=== PATIENT | male | born 1980 | race Caucasian/White ===

== ENCOUNTER 2016-05-13 18:44 | Emergency (ER) | payer SELFPAY ==
[2016-05-13] MEDS ORDERED: NORMAL SALINE 1000 ML 1,000 ML IV ONE (19:45)
[2016-05-13 19:56] LABS: ALANINE AMINOTRANSFERASE 202 U/L (21-72); ALBUMIN 4.9 g/dL (3.5-5.0); ALKALINE PHOSPHATASE 114 U/L (38-126); ANION GAP 17 (5-19); ASPARTATE AMINO TRANSFERASE 96 U/L (17-59); BILIRUBIN,DIRECT 0.3 mg/dL (0.0-0.4); BILIRUBIN,TOTAL 0.9 mg/dL (0.2-1.3); BLOOD UREA NITROGEN 9 mg/dL (7-20); CALCIUM 10.3 mg/dL (8.4-10.2); CARBON DIOXIDE 22 mmol/L (22-30); CHLORIDE 102 mmol/L (98-107); CREATININE RESULT 1.06 mg/dL (0.52-1.25); GLUCOSE 109 mg/dL (75-110); LIPASE 220.3 U/L (23-300); POTASSIUM 3.1 mmol/L (3.6-5.0); SODIUM 141.4 mmol/L (137-145); TOTAL PROTEIN 8.1 g/dL (6.3-8.2)
[2016-05-13 20:02] LABS: ABSOLUTE LYMPHOCYTES (AUTO) 1.5 10^3/uL (0.5-4.7); ABSOLUTE MONOCYTES (AUTO) 1.7 10^3/uL (0.1-1.4); BASOPHILS % (AUTO) 0.2 % (0-2); EOSINOPHILS % (AUTO) 0.3 % (0-6); HEMATOCRIT 44.9 % (37.9-51.0); HGB HCT DIFFERENCE 0.1; LYMPHOCYTES % (AUTO) 12.2 % (13-45); MEAN CORPUSCULAR HEMOGLOBIN 29.5 pg (27.0-33.4); MEAN CORPUSCULAR HGB CONC 33.5 g/dL (32.0-36.0); MEAN CORPUSCULAR VOLUME 88 fl (80-97); MONOCYTES % (AUTO) 14.1 % (3-13); RED BLOOD COUNT 5.08 10^6/uL (4.35-5.55); SEGMENTED NEUTROPHILS % (AUTO) 73.2 % (42-78); WHITE BLOOD COUNT 12.3 10^3/uL (4.0-10.5)
[2016-05-13] MEDS ORDERED: ONDANSETRON HCL INJ/PF 4 MG/2 ML SDV IV ONE ×2 (20:28→22:36)
--- NOTE | 2016-05-13 20:40 | EKG REPORT ---
SEVERITY:- BORDERLINE ECG - SINUS RHYTHM BORDERLINE T ABNORMALITIES, INFERIOR LEADS : Confirmed by: Katherin Winslow 13-May-2016 20:39:15
[2016-05-13 20:50] LABS: APPEARANCE,URINE SLIGHTLY-CLOUDY; BILIRUBIN,URINE NEGATIVE (NEGATIVE); GLUCOSE, URINE NEGATIVE (NEGATIVE); KETONES,URINE NEGATIVE (NEGATIVE); LEUKOCYTE ESTERASE,URINE NEGATIVE (NEGATIVE); NITRITE,URINE NEGATIVE (NEGATIVE); PROTEIN,URINE NEGATIVE (NEGATIVE); URINE SPECIFIC GRAVITY 1.016; UROBILINOGEN,URINE NEGATIVE mg/dL (<2.0)
[2016-05-13 21:00] LABS: CREATINE KINASE MB < 0.22 ng/mL (<4.55); TROPONIN I < 0.012 ng/mL
[2016-05-13 21:11] LABS: URINE BARBITURATES SCREEN NEGATIVE; URINE METHADONE SCREEN NEGATIVE; URINE OPIATES LOW UNCONFIRMED POSITIVE; URINE PHENCYCLIDINE SCREEN NEGATIVE
[2016-05-13] MEDS ORDERED: POTASSIUM CHLORIDE 20 MEQ/15 ML UDCUP PO ONE (22:06)
[2016-05-13] MEDS ORDERED: RINGERS SOLUTION,LACTATED 1,000 ML IV ONE (22:26)
[2016-05-13] MEDS ORDERED: MORPHINE SULFATE 10 MG/ML INJ IV ONE (22:35)
--- NOTE | 2016-05-14 01:22 | ER Document Report ---
ED GI/ - General Chief Complaint: Flank Pain Stated Complaint: ALTERED, WEAK Mode of Arrival: Ambulatory Information source: Patient Notes: 36 y/o M presents to the Emergency Department c/o lower abd pain and n/v/d. Pt reports had similar symptoms last week and was evaluated by pcp and given IV fluids. States symptoms had resolved but yesterday evening began having lower abd pain and persistent watery diarrhea. Reports associated chills with unmeasured temperature at home and two episodes of vomiting. Reports was taking a shower this evening in an attempt to relieve the symptoms when he became dizzy and had brief syncopal episode. Denies striking head, neck pain, paresthesias, chest pain, sob, blood in stool or emesis. Denies recent travel or antibiotic use. TRAVEL OUTSIDE OF THE [place] IN LAST 30 DAYS: No - HPI Patient complains to provider of: Abdominal pain, Diarrhea, Vomiting Onset: Yesterday Timing/Duration: Persistent Quality of pain: Achy, Sharp Severity at maximum: Severe Severity in ED: Moderate Pain Level: 3 Similar symptoms previously: Yes Recently seen / treated by doctor: Yes - Related Data Allergies/Adverse Reactions: Iodinated Contrast Media - Oral and Allergy (Mild, Verified 05/13/16 20:42) Difficulty breathing Past Medical History - General Information source: Patient - Social History Smoking Status: Never Smoker Frequency of alcohol use: Rare Drug Abuse: None Lives with: Family Family History: Reviewed & Not Pertinent - Medical History Medical History: Negative Past Surgical History: Reports: Hx Orthopedic Surgery - left arm - Immunizations Hx Diphtheria, Pertussis, Tetanus Vaccination: Yes Review of Systems - Review of Systems Constitutional: No symptoms reported EENT: No symptoms reported Cardiovascular: See HPI Respiratory: No symptoms reported Gastrointestinal: See HPI Genitourinary: No symptoms reported Male Genitourinary: No symptoms reported Musculoskeletal: No symptoms reported Skin: No symptoms reported Hematologic/Lymphatic: No symptoms reported Neurological/Psychological: No symptoms reported -: Yes All other systems reviewed and negative Physical Exam - Vital signs Vitals: Resp Pulse Ox 14 100 05/13/16 19:06 05/13/16 19:06 Interpretation: Normal - General General appearance: Alert In distress: None - HEENT Head: Normocephalic, Atraumatic Eyes: Normal Eyelashes: Normal Pupils: PERRL Ears: Normal External canal: Normal Tympanic membrane: Normal Sinus: Normal Nasal: Normal Mouth/Lips: Normal Mucous membranes: Normal, Moist Pharynx: Normal. No: Blood in hypopharynx, Erythema, Exudate, Peritonsillar abscess, Post nasal drainage, Retropharyngeal abscess, Tonsillar hypertrophy, Uvular edema, Potential airway comprom., Other Neck: Normal. No: Anterior cervical chain, Posterior cervical chain, Lymphadenopathy, Meningismus, Subcutaneous emphysema - Respiratory Respiratory status: No respiratory distress Chest status: Nontender Breath sounds: Normal - CTAB Chest palpation: Normal - Cardiovascular Rhythm: Regular Heart sounds: Normal auscultation Murmur: No Pulses: Normal: Radial Normal capillary refill: Yes - Abdominal Inspection: Normal Distension: No distension Bowel sounds: Normal Tenderness: Tender - diffuse tenderness with palpation to lower abd L>R. No: Nontender, McBurney's point, Frederick's sign, Guarding, Rebound, Other Organomegaly: No organomegaly - Back Back: Normal, Nontender - Extremities General upper extremity: Normal inspection, Nontender, Normal color, Normal ROM , Normal strength, Normal temperature. No: Edema General lower extremity: Normal inspection, Nontender, Normal color, Normal ROM , Normal strength, Normal temperature, Normal weight bearing. No: Edema - Neurological Neuro grossly intact: Yes Cognition: Normal Orientation: AAOx4 Nathan Coma Scale Eye Opening: Spontaneous Nathan Coma Scale Verbal: Oriented [place] Coma Scale Motor: Obeys Commands [place] Coma Scale Total: 15 Speech: Normal Motor strength normal: LUE, RUE, LLE, RLE Sensory: Normal - Psychological Associated symptoms: Normal affect, Normal mood - Skin Skin Temperature: Warm Skin Moisture: Dry Skin Color: Normal Course - Re-evaluation Re-evalutation: 05/14/16 02:00 Pt hemodynamically stable, in no distress, afebrile. Slight leukocytosis, hypokalemia, and elevation of ast/alt on labs. CT scan with oral contrast unremarkable. Pt reports after IV fluids and pain medication feels much better and would like to go home. The patient presents with abdominal pain and n/v/d without signs of peritonitis or other life-threatening or serious etiology. The patient appears stable for discharge and has been instructed to return immediately if the symptoms persist or worsen in any way. Pt and significant other agree with home care, follow-up with pcp, and ED return precautions. Pt presentation, findings, ED care and plan discussed with ED physician Dr. Whitten who concurs with evaluation and treatment. - Vital Signs Vital signs: Temp Pulse Resp BP Pulse Ox 99.9 F 77 14 123/93 H 96 05/13/16 23:53 05/13/16 23:53 05/13/16 23:53 05/14/16 02:00 05/14/16 02:01 - Laboratory Result Diagrams: 05/13/16 18:53 05/13/16 18:53 Laboratory results interpreted by me: 05/13/16 05/13/16 05/13/16 18:53 18:53 20:26 WBC 12.3 H Lymphocytes % 12.2 L Monocytes % 14.1 H Absolute Neutrophils 9.0 H Absolute Monocytes 1.7 H Potassium 3.1 L POC Glucose 114 H Calcium 10.3 H AST 96 H ALT 202 H Urine Blood 05/13/16 20:27 WBC Lymphocytes % Monocytes % Absolute Neutrophils Absolute Monocytes Potassium POC Glucose Calcium AST ALT Urine Blood SMALL H - Diagnostic Test Radiology reviewed: Image reviewed, Reports reviewed - EKG Interpretation by Me EKG shows normal: Sinus rhythm, Intervals, QRS Complexes, ST-T Waves Rate: Normal When compared to previous EKG there are: Previous EKG unavailable Discharge - Discharge Clinical Impression: Abdominal pain Qualifiers: Abdominal location: lower abdomen, unspecified Qualified Code(s): R10.30 - Lower abdominal pain, unspecified Nausea & vomiting Qualifiers: Vomiting type: unspecified Vomiting Intractability: non-intractable Qualified Code(s): R11.2 - Nausea with vomiting, unspecified Condition: Stable Disposition: HOME, SELF-CARE Instructions: Abdominal Pain ([facility]), Observation for Appendicitis ([facility]), Intravenous (IV) Fluids ([facility]), Vomiting ([facility]), Diarrhea, Nonspecific ([facility]), Dehydration ([facility]), Pain Medication Injection ([facility]), Hypokalemia ([facility]), Liver Function Abnormality ([facility]), Ciprofloxacin ([facility]), Syncopal Episode ([facility]) Additional Instructions: Drink plenty of fluids. Follow-up with your primary care provider tomorrow. Return to the Emergency Department for any worsening symptoms or concerns. Prescriptions: Ciprofloxacin HCl [Cipro 500 mg Tablet] 500 mg PO BID #10 tablet Forms: Return to Work Referrals: MARISOL PHOENIX MD [ACTIVE STAFF] - Follow up tomorrow
[2016-05-14 02:50] VITALS: BP 127/89
== END 2016-05-14 02:35 | disposition home or self-care (01) ==
LOC: ER 18:44
DX: R10.30 Lower abdominal pain, unspecified (principal); R11.2 Nausea with vomiting, unspecified; R19.7 Diarrhea, unspecified; R68.83 Chills (without fever); R55 Syncope and collapse; R74.0 Nonspecific elevation of levels of transaminase and lactic acid dehydrogenase [LDH]; D72.829 Elevated white blood cell count, unspecified; E87.6 Hypokalemia; Z91.041 Radiographic dye allergy status
CPT/HCPCS: 93005; 96376; 99284; 96374; 96375; 36415; 87045; 89055; 87205; 82553; 82962; 82550; 83690; 85025; 82272; 80053; 81001; 84484; 80307; 74176; 93010; J2270; J2405; J7030; J7120

== ENCOUNTER 2019-04-24 18:12 | Emergency (ER) | payer SELFPAY ==
[2019-04-24] MEDS ORDERED: NORMAL SALINE 1000 ML 1,000 ML IV ONE (18:18)
[2019-04-24] MEDS ORDERED: METOCLOPRAMIDE HCL INJ/PF 10 MG/2 ML SDV IV ONE (18:18)
--- NOTE | 2019-04-24 18:20 | ER Document Report ---
ED Medical Screen (RME) - General Chief Complaint: Vomiting/Diarrhea Stated Complaint: VOMITING,ABDOMINAL PAIN,FEVER Time Seen by Provider: 04/24/19 18:18 Mode of Arrival: Ambulatory Information source: Patient Notes: 39-year-old male presents emergency department with complaints of 2 days of vomiting abdominal pain low-grade fever. Went to [place] urgent care where flu test and strep test were completed, both were negative. Patient reports he has been unable to hold any fluids down. Complains of right upper quadrant epigastric pain. Reports he has been here before for this but he forgets what he was diagnosed with. Patient also reports his children were sick with the same symptoms and they also tested negative for both strep and the flu. Denies recent trips overseas or contact with anyone from overseas. I have greeted and performed a rapid initial assessment of this patient. A comprehensive ED assessment and evaluation of the patient, analysis of test results and completion of the medical decision making process will be conducted by additional ED providers. TRAVEL OUTSIDE OF THE [place] IN LAST 30 DAYS: No - Related Data Allergies/Adverse Reactions: Iodinated Contrast Media [Iodinated Contrast Media - Oral and] Allergy (Mild, Verified 05/13/16 20:42) Difficulty breathing Past Medical History Past Surgical History: Reports: Hx Orthopedic Surgery - left arm - Immunizations Hx Diphtheria, Pertussis, Tetanus Vaccination: Yes Physical Exam - Vital signs Vitals: Temp Pulse Resp BP Pulse Ox 101.4 F H 93 18 129/89 H 99 04/24/19 18:21 04/24/19 18:21 04/24/19 18:21 04/24/19 18:21 04/24/19 18:21 Course - Vital Signs Vital signs: Temp Pulse Resp BP Pulse Ox 101.4 F H 93 18 129/89 H 99 04/24/19 18:21 04/24/19 18:21 04/24/19 18:21 04/24/19 18:21 04/24/19 18:21
[2019-04-24 19:34] LABS: ABSOLUTE MONOCYTES (AUTO) 1.2 10^3/uL (0.1-1.4); ABSOLUTE NEUT (AUTO) 6.6 10^3/uL (1.7-8.2); BASOPHILS % (AUTO) 0.2 % (0-2); HEMOGLOBIN 14.9 g/dL (13.5-17.0); LYMPHOCYTES % (AUTO) 11.1 % (13-45); MEAN CORPUSCULAR HEMOGLOBIN 30.5 pg (27.0-33.4); MEAN CORPUSCULAR HGB CONC 34.6 g/dL (32.0-36.0); MEAN CORPUSCULAR VOLUME 88 fl (80-97); MONOCYTES % (AUTO) 13.7 % (3-13); PLATELET COUNT 210 10^3/uL (150-450); RED BLOOD COUNT 4.88 10^6/uL (4.35-5.55); RED CELL DISTRIBUTION WIDTH 13.4 % (11.5-14.0); TOTAL CELLS COUNTED % (AUTO) 100 %; WHITE BLOOD COUNT 8.8 10^3/uL (4.0-10.5)
[2019-04-24 19:58] LABS: ALKALINE PHOSPHATASE 87 U/L (38-126); ANION GAP 10 (5-19); ASPARTATE AMINO TRANSFERASE 51 U/L (17-59); BILIRUBIN,DIRECT 0.2 mg/dL (0.0-0.4); BILIRUBIN,TOTAL 0.9 mg/dL (0.2-1.3); BLOOD UREA NITROGEN 14 mg/dL (7-20); CALCIUM 9.6 mg/dL (8.4-10.2); CARBON DIOXIDE 26 mmol/L (22-30); CHLORIDE 102 mmol/L (98-107); GLUCOSE 103 mg/dL (75-110); POTASSIUM 3.5 mmol/L (3.6-5.0); TOTAL PROTEIN 8.8 g/dL (6.3-8.2)
[2019-04-24 20:11] LABS: APPEARANCE,URINE SLIGHTLY-CLOUDY; BILIRUBIN,URINE NEGATIVE (NEGATIVE); COLOR,URINE YELLOW; GLUCOSE, URINE NEGATIVE (NEGATIVE); KETONES,URINE TRACE mg/dL (NEGATIVE); LEUKOCYTE ESTERASE,URINE NEGATIVE (NEGATIVE); NITRITE,URINE NEGATIVE (NEGATIVE); PROTEIN,URINE 30 mg/dL (NEGATIVE); URINE SPECIFIC GRAVITY 1.026
[2019-04-24 20:20] LABS: ADD MANUAL MICROSCOPIC YES
[2019-04-24 20:21] LABS: RBC,URINE 0-1 /HPF
--- NOTE | 2019-04-24 20:21 | RADIOLOGY REPORT (SQ) ---
US ABDOMEN LIMITED EXAM DATE: 04/24/2019 6:18 PM CDT HISTORY: Right upper quadrant pain. COMPARISON: None. TECHNIQUE: Grayscale and color Doppler imaging of the right upper quadrant was performed. FINDINGS: The liver has normal echotexture without focal lesion identified. The main portal vein has normal hepatopetal flow. No shadowing gallstones are seen. There is an echogenic area with ring down artifact in the gallbladder wall may represent adenomyomatosis. No pericholecystic fluid or gallbladder wall thickening. The common bile duct is normal caliber. The visualized portions of the pancreas are unremarkable. No hydronephrosis or shadowing renal stones are identified. The right kidney is normal in size. The visualized portions of the IVC and aorta are patent. IMPRESSION: 1. No acute abdominal findings are seen. 2. Query gallbladder adenomyomatosis, which may be further evaluated with MRI if clinically indicated.
[2019-04-24] MEDS ORDERED: ACETAMINOPHEN 325 MG TABLET PO ONE (20:30)
--- NOTE | 2019-04-24 20:32 | ER Document Report ---
ED GI/ - General Chief Complaint: Abdominal Pain Stated Complaint: VOMITING,ABDOMINAL PAIN,FEVER Time Seen by Provider: 04/24/19 18:18 Mode of Arrival: Ambulatory Notes: 39-year-old man presents to the emergency department with a complaint of nausea vomiting and diarrhea, he notes he began having fever this morning with associated nausea and vomiting and has had his first episode of diarrhea while here at the emergency department. notes that 1 of the children has also had a gastroenteritis picture last week. TRAVEL OUTSIDE OF THE [place] IN LAST 30 DAYS: No - Related Data Allergies/Adverse Reactions: Iodinated Contrast Media [Iodinated Contrast Media - Oral and] Allergy (Mild, Verified 04/24/19 19:30) Difficulty breathing Past Medical History - General Information source: Patient - Social History Smoking Status: Former Smoker Chew tobacco use (# tins/day): No Frequency of alcohol use: Social Family History: Reviewed & Not Pertinent Patient has suicidal ideation: No Patient has homicidal ideation: No Past Surgical History: Reports: Hx Orthopedic Surgery - left arm - Immunizations Hx Diphtheria, Pertussis, Tetanus Vaccination: Yes Review of Systems - Review of Systems Notes: Constitutional: +fever. HENT: Negative for sore throat. Eyes: Negative for visual changes. Cardiovascular: Negative for chest pain. Respiratory: Negative for shortness of breath. Gastrointestinal:+abdominal pain, +vomiting. + diarrhea. Genitourinary: Negative for dysuria. Musculoskeletal: Negative for back pain. Skin: Negative for rash. Neurological: Negative for headaches, weakness or numbness. 10 point ROS negative except as marked above and in HPI. Physical Exam - Vital signs Vitals: Temp Pulse Resp BP Pulse Ox 101.4 F H 93 18 129/89 H 99 04/24/19 18:21 04/24/19 18:21 04/24/19 18:21 04/24/19 18:21 04/24/19 18:21 - Notes Notes: PHYSICAL EXAMINATION: Physical Exam: General: Well-nourished well-developed 39-year-old man in no acute distress HEENT: NC/AT, pupils equal round and reactive to light, MM moist,nares clear, oropharynx clear, airway patent Neck: supple, no adenopathy, no masses. Good range of motion Lungs: clear, no wheezing, no rales no rhonchi CVS: Regular rate and rhythm no murmur gallop or rub Abdomen: Soft, active, nontender, no masses, no hepatosplenomegaly Ext: No edema, clubbing or cyanosis. Neuro: Alert and responsive, moving all 4 extremities on command, cranial nerves intact, no focal findings Skin: Intact no open lesions, no rash PSYCH: Normal mood, normal affect. Course - Re-evaluation Re-evalutation: 04/24/19 21:01 Patient is given normal saline, 1 L, Reglan and Tylenol in the emergency department he is feeling much better. States that he is ready to be discharged. He is being sent home with Zofran, dicyclomine and a note for the workplace excusing him until Tuesday. The patient and his were very thankful and appreciative of the care and are in agreement with this plan. - Vital Signs Vital signs: Temp Pulse Resp BP Pulse Ox 101.4 F H 93 18 129/89 H 99 04/24/19 18:21 04/24/19 18:21 04/24/19 18:21 04/24/19 18:21 04/24/19 18:21 - Laboratory Result Diagrams: 04/24/19 18:55 04/24/19 18:55 Laboratory results interpreted by me: 04/24/19 04/24/19 04/24/19 18:55 18:55 19:47 Lymph % (Auto) 11.1 L [place] % (Auto) 13.7 H Potassium 3.5 L Total Protein 8.8 H Urine Protein 30 H Urine Ketones TRACE H Urine Blood SMALL H Urine Urobilinogen 2.0 H 04/24/19 21:01 I have reviewed laboratory data and used this information for the treatment decisions regarding the patient. - Diagnostic Test Radiology reviewed: Image reviewed, Reports reviewed - Abdominal ultrasound: No acute findings. Discharge - Discharge Clinical Impression: Enteritis, Nausea vomiting and diarrhea Condition: Good Disposition: HOME, SELF-CARE Instructions: Antispasmodics ([facility]), Antinausea Medication ([facility]), Gastroenteritis (adult) ([facility]) Additional Instructions: You have been seen in the Emergency Department (ED) today for nausea and vomiting. Your work up today has not shown a clear cause for your symptoms. You have been prescribed Zofran; please use as prescribed as needed for your nausea. Follow up with your doctor if needed. Regarding today's emergent visit and your symptoms of nausea, vomiting, diarrhea. Return to the Emergency Department (ED) if you develop abdominal pain, bloody vomiting, bloody diarrhea, if you are unable to tolerate fluids due to vomiting, or if you develop other symptoms that concern you. HOME CARE INSTRUCTIONS & INFORMATION: Thank you for choosing us for your medical needs. We hope you're satisfied with the care you received. After you leave, you must properly care for your problem and, at the same time, observe its progress. Any condition can change. Some illnesses can change rapidly over hours or days. If your condition worsens, return to the Emergency Department or see your physician promptly. ABOUT YOUR X-RAYS AND EKG'S: If you had an EKG or X-rays taken, they have been read by the Emergency Physician. The X-rays and EKG's will also be read by a Radiologist or Direct Support Professional Home Health within 24 hours. If discrepancies are noted, you will be notified by telephone. Please be certain the ED has a correct telephone number & address where you can be reached. Also, realize that some fractures or abnormalities do not show up on initial X-rays. If your symptoms continue, see your physician. ABOUT YOUR LABORATORY TEST: If you had laboratory tests, the results have been reviewed by the Emergency Physician. Some test results (for example cultures) may not be available for several days. You will be contacted if any test result shows you need additional treatment. Please be certain the ED has a correct telephone number and address where you can be reached. ABOUT YOUR MEDICATIONS: You will receive instructions on how to take your medicine on the prescription label you receive. Additional information may be provided by the Pharmacy. If you have questions afterwards, call the ED for clarification or further instructions. Some prescribed medications may cause drowsiness. Do not perform tasks such as driving a car or operating machinery without consulting your Pharmacist. If you feel you need a refill of pain medication, your condition will need re-evaluation. Please do not call for a refill of any medication. ABOUT YOUR SIGNATURE: Signature of this document acknowledges to followin. Understanding that you received emergency treatment and that you may be released before al medical problems are known or treated. Please be certain the ED has a correct phone number & address where you can be reached. 2. Acknowledgement that you will arrange for follow-up care as recommended. 3. Authorization for the Emergency Physician to provide information to your follow-up Physician in order to maximize your care. AT ANY TIME, IF YOUR SYMPTOMS CHANGE SIGNIFICANTLY OR WORSEN OR YOU DEVELOP NEW SYMPTOMS, RETURN TO THE EMERGENCY DEPARTMENT IMMEDIATELY FOR RE-EVALUATION. OUR GOAL IS TO PROVIDE EXCELLENT MEDICAL CARE! WE HOPE THAT WE HAVE MET YOUR EXPECTATIONS DURING YOUR EMERGENCY DEPARTMENT VISIT AND THAT YOU FEEL YOU HAVE RECEIVED EXCELLENT CARE! Prescriptions: Dicyclomine HCl [Bentyl 10 mg Capsule] 1 cap PO TID PRN #20 cap PRN Reason: Ondansetron [Zofran Odt 4 mg Tablet] 1 - 2 tab PO Q4H PRN #15 tab.rapdis PRN Reason: For Nausea/Vomiting Forms: Return to Work
[2019-04-24 21:34] VITALS: BP 124/71
== END 2019-04-24 21:36 | disposition home or self-care (01) ==
LOC: ER 18:12
DX: K52.9 Noninfective gastroenteritis and colitis, unspecified (principal); R11.2 Nausea with vomiting, unspecified; R50.9 Fever, unspecified; Z91.041 Radiographic dye allergy status; Z87.891 Personal history of nicotine dependence
CPT/HCPCS: 99284; 96361; 96374; 36415; 87040; 83690; 85025; 80053; 81001; 76705; J2765; J7030

== ENCOUNTER 2019-07-03 03:59 | Emergency (ER) | payer SELFPAY ==
[2019-07-03] MEDS ORDERED: KETOROLAC TROMETHAMINE INJ/PF 30 MG/1 ML SDV IV ONE (04:10)
[2019-07-03] MEDS ORDERED: ONDANSETRON HCL INJ/PF 4 MG/2 ML SDV IV ONE (04:10)
[2019-07-03] MEDS ORDERED: NORMAL SALINE 1000 ML 1,000 ML IV ONE (04:23)
[2019-07-03] MEDS ORDERED: HYDROMORPHONE HCL INJ/PF 2 MG/ML AMPULE IV ONE (04:23)
--- NOTE | 2019-07-03 04:25 | ER Document Report ---
ED GI/ - General Chief Complaint: Flank Pain Stated Complaint: FLANK PAIN Time Seen by Provider: 07/03/19 04:20 Notes: Patient is a 39-year-old male that comes emergency department for chief complaint of severe right flank pain radiating around to the right side of his abdomen and multiple episodes of vomiting. Symptoms started 1 hour prior to arrival and started suddenly. Patient denies history of kidney stones or history of similar symptoms. He denies testicula/genital pain. He denies any injury, fever, dysuria, or any other complaints. He states that he had a herniated disc, he denies any surgeries, denies any daily medications, denies any medical history otherwise. He denies alcohol or recreational drugs. TRAVEL OUTSIDE OF THE [place] IN LAST 30 DAYS: No - Related Data Allergies/Adverse Reactions: Iodinated Contrast Media [Iodinated Contrast Media - Oral and] Allergy (Mild, Verified 07/03/19 04:06) Difficulty breathing Past Medical History - General Information source: Patient - Social History Smoking Status: Never Smoker Drug Abuse: None Lives with: Family Family History: Reviewed & Not Pertinent Patient has homicidal ideation: No - Medical History Medical History: Negative Past Surgical History: Reports: Hx Orthopedic Surgery - left arm - Immunizations Hx Diphtheria, Pertussis, Tetanus Vaccination: Yes Review of Systems - Review of Systems Constitutional: No symptoms reported EENT: No symptoms reported Cardiovascular: No symptoms reported Respiratory: No symptoms reported Gastrointestinal: See HPI Genitourinary: See HPI Male Genitourinary: No symptoms reported Musculoskeletal: No symptoms reported Skin: No symptoms reported Hematologic/Lymphatic: No symptoms reported Neurological/Psychological: No symptoms reported Physical Exam - Vital signs Vitals: Temp 98.6 F 07/03/19 04:06 - Notes Notes: GENERAL: Patient is in severe distress, diaphoretic, has difficulty holding still HEAD: Normocephalic, atraumatic. EYES: Pupils equal, round, and reactive to light. Extraocular movements intact. ENT: Oral mucosa moist, tongue midline. Oropharynx unremarkable. Airway patent. NECK: Full range of motion. Supple. Trachea midline. No lymphadenopathy. LUNGS: Clear to auscultation bilaterally, no wheezes, rales, or rhonchi. No respiratory distress. Non-tender chest wall. HEART: Regular rate and rhythm. No murmur ABDOMEN: Generalized tenderness in the right abdomen, nonspecific, no guarding. Remaining abdomen unremarkable. EXTREMITIES: Moves all 4 extremities spontaneously. No edema, normal radial and dorsalis pedis pulses bilaterally. No cyanosis. BACK: Right CVA tenderness. Otherwise unremarkable. No cervical, thoracic, lumbar midline tenderness. No saddle anesthesia, normal distal neurovascular exam. Moves all extremities in full range of motion. NEUROLOGICAL: Alert and oriented x3. Normal speech. Cranial nerves II through XII grossly intact. Strength 5/5 in all extremities. PSYCH: Agitated SKIN: Flushed and diaphoretic Course - Re-evaluation Re-evalutation: Initially patient in distress, restless, diaphoretic, vomiting. Presentation is most suggestive of acute passing ureterolithiasis. Patient was medicated with Zofran, Toradol, Dilaudid, and given IV fluids. On reevaluation patient is comfortable, symptoms resolved. CBC shows mild leukocytosis, nonspecific. Chemistry unremarkable. CT shows 2 mm right-sided ureterolithiasis at the UVJ with mild hydronephrosis. No acute findings otherwise. Urinalysis obtained and shows blood but is otherwise unremarkable. On reevaluation patient is still well-appearing and asymptomatic. Discussed details at length. Discussed follow-up and return precautions. Patient states understanding and agreement. - Vital Signs Vital signs: Temp Pulse Resp BP Pulse Ox 98.6 F 97 20 150/106 H 98 07/03/19 04:09 07/03/19 04:09 07/03/19 04:09 07/03/19 04:09 07/03/19 04:09 - Laboratory Result Diagrams: 07/03/19 04:48 07/03/19 04:48 Laboratory results interpreted by me: 07/03/19 07/03/19 07/03/19 04:48 04:48 06:01 WBC 12.5 H RBC 4.18 L Hgb 12.8 L Hct 36.9 L Absolute Neuts (auto) 9.2 H Potassium 3.3 L Glucose 137 H Urine Blood LARGE H Discharge - Discharge Clinical Impression: Right flank pain, Ureterolithiasis Vomiting Qualifiers: Vomiting type: unspecified Vomiting Intractability: non-intractable Nausea pre sence: with nausea Qualified Code(s): R11.2 - Nausea with vomiting, unspecified Abdominal pain Qualifiers: Abdominal location: generalized Qualified Code(s): R10.84 - Generalized abdomin al pain Disposition: HOME, SELF-CARE Additional Instructions: Your work-up indicates that you are passing a 2 mm kidney stone on the right side. You will most likely be able to pass this at home. You can take the provided pain medication if needed, you can take the nausea medication if needed, you can add 600 mg of ibuprofen every 6 hours for better results. Drink plenty of fluids. Follow-up with the urology referral. If you develop any worsening symptoms including uncontrolled vomiting, fever/chills, severe worsening pain, or any other concerning symptoms please be seen again in the emergency department. [facility] [address] [place], [place] [id number] [facility] [address] [place], [place] [id number] Prescriptions: Oxycodone HCl/Acetaminophen [Percocet 5-325 mg Tablet] 1 - 2 tab PO TID PRN #15 tablet PRN Reason: Ondansetron [Zofran Odt 4 mg Tablet] 1 - 2 tab PO Q4H PRN #15 tab.rapdis PRN Reason: For Nausea/Vomiting Forms: Return to Work
[2019-07-03 05:01] LABS: ABSOLUTE EOSINOPHILS # (AUTO) 0.1 10^3/uL (0.0-0.6); ABSOLUTE MONOCYTES (AUTO) 0.9 10^3/uL (0.1-1.4); EOSINOPHILS % (AUTO) 0.7 % (0-6); HEMOGLOBIN 12.8 g/dL (13.5-17.0); TOTAL CELLS COUNTED % (AUTO) 100 %
[2019-07-03 05:08] LABS: ABSOLUTE BASOPHILS # (AUTO) 0.1 10^3/uL (0.0-0.2); ABSOLUTE LYMPHOCYTES (AUTO) 2.2 10^3/uL (0.5-4.7); ABSOLUTE NEUT (AUTO) 9.2 10^3/uL (1.7-8.2); BASOPHILS % (AUTO) 0.5 % (0-2); HEMATOCRIT 36.9 % (37.9-51.0); MEAN CORPUSCULAR HEMOGLOBIN 30.5 pg (27.0-33.4); MEAN CORPUSCULAR HGB CONC 34.6 g/dL (32.0-36.0); MEAN CORPUSCULAR VOLUME 88 fl (80-97); MONOCYTES % (AUTO) 7.3 % (3-13); PLATELET COUNT 202 10^3/uL (150-450); RED BLOOD COUNT 4.18 10^6/uL (4.35-5.55); RED CELL DISTRIBUTION WIDTH 13.1 % (11.5-14.0); SEGMENTED NEUTROPHILS % (AUTO) 73.5 % (42-78); WHITE BLOOD COUNT 12.5 10^3/uL (4.0-10.5)
[2019-07-03 05:17] LABS: ALBUMIN 4.2 g/dL (3.5-5.0); ALKALINE PHOSPHATASE 76 U/L (38-126); ANION GAP 10 (5-19); ASPARTATE AMINO TRANSFERASE 23 U/L (17-59); BILIRUBIN,TOTAL 0.3 mg/dL (0.2-1.3); BLOOD UREA NITROGEN 13 mg/dL (7-20); CARBON DIOXIDE 23 mmol/L (22-30); CHLORIDE 105 mmol/L (98-107); GLUCOSE 137 mg/dL (75-110); POTASSIUM 3.3 mmol/L (3.6-5.0)
--- NOTE | 2019-07-03 05:50 | RADIOLOGY REPORT (SQ) ---
CT abdomen and pelvis without contrast on 07/03/2019 at 5:03 AM CLINICAL INDICATION: Right-sided back pain, vomiting TECHNIQUE: Multiple axial images are obtained throughout the abdomen and pelvis without the administration of contrast. This exam was performed according to our departmental dose-optimization program, which includes automated exposure control, adjustment of the mA and/or kV according to patient size and/or use of iterative reconstruction technique. Total DLP is 662.37 mGy*cm. COMPARISON: 05/13/2016 FINDINGS: Abdomen: There is minimal basilar atelectasis. There is very mild right hydronephrosis and hydroureter to the level of a 2 mm right distal ureteral stone just above the right UVJ. There are no other renal or ureteral stones. The unenhanced solid abdominal organs are otherwise unremarkable. There is no abdominal adenopathy. There is no free fluid or free air within the abdomen. The abdominal portion of the GI tract is unremarkable. Pelvis: There is no free fluid in the pelvis. There is no pelvic adenopathy. Pelvic portion of the GI tract including the appendix is unremarkable. Degenerative changes are noted in the spine. Bilateral pars defects are noted at L5 with grade 1 spondylolisthesis at L5-S1. IMPRESSION: 1. Very mildly obstructing 2 mm right distal ureteral stone just above the right UVJ. 2. No other acute abnormality.
[2019-07-03 06:23] LABS: APPEARANCE,URINE CLEAR; BILIRUBIN,URINE NEGATIVE (NEGATIVE); COLOR,URINE YELLOW; GLUCOSE, URINE NEGATIVE (NEGATIVE); KETONES,URINE NEGATIVE (NEGATIVE); LEUKOCYTE ESTERASE,URINE NEGATIVE (NEGATIVE); NITRITE,URINE NEGATIVE (NEGATIVE); PROTEIN,URINE NEGATIVE (NEGATIVE); URINE SPECIFIC GRAVITY 1.017; UROBILINOGEN,URINE NEGATIVE mg/dL (<2.0)
[2019-07-03] MEDS ORDERED: ONDANSETRON ODT 4 MG TAB (6 TAB/ER DISP) PO PRN (06:49)
[2019-07-03] MEDS ORDERED: HYDROCODONE/ACETAMINOPHEN 5-325 MG (6 TAB/ER DISP) PO PRN (06:49)
[2019-07-03 07:02] VITALS: BP 137/83
== END 2019-07-03 07:03 | disposition home or self-care (01) ==
LOC: ER 03:59
DX: N13.2 Hydronephrosis with renal and ureteral calculous obstruction (principal); R10.84 Generalized abdominal pain; R11.2 Nausea with vomiting, unspecified; Z91.041 Radiographic dye allergy status
CPT/HCPCS: 99284; 96361; 96374; 96375; 36415; 83690; 85025; 80053; 81001; 74176; J1885; J1170; J2405; J7030